=== PATIENT | male | born 1980 | race Caucasian/White ===

== ENCOUNTER 2017-02-08 18:15 | Emergency (ER) | payer BC, OTHER ==
[2017-02-08] MEDS ORDERED: Dexamethasone 10 MG/ML SDV IM ONE (19:51)
--- NOTE | 2017-02-08 19:55 | EDM.PDOC ---
ED HPI GENERAL MEDICAL PROBLEM - General Chief Complaint: ENT Problem Stated Complaint: PT HAS SORE THROAT Time Seen by Provider: 02/08/17 19:37 - History of Present Illness INITIAL COMMENTS - FREE TEXT/NARRATIVE: HISTORY AND PHYSICAL: History of present illness: The patient is a 36-year-old male who presents with a one-week history of sore throat which she feels is more on the right side but has not had significant fevers cough vomiting diarrhea or abdominal complaints. He does feel like his ears are plugged up and he did notice that he had some blood this morning originating from his nose and going down the back of his throat but is not being consistent. He does have some sinus congestion but no discrete pressure or pain. He has no ill contacts and has been eating and drinking normally and feels that it's uncomfortable to speak and swallow but he does not feel like his voice is changed significantly. He has no rashes. Review of systems: As per history of present illness and below otherwise all systems reviewed and negative. Past medical history: As per history of present illness and as reviewed below otherwise noncontributory. Surgical history: As per history of present illness and as reviewed below otherwise noncontributory. Social history: No reported history of drug or alcohol abuse. Family history: As per history of present illness and as reviewed below otherwise noncontributory. Physical exam: General: Well-developed well-nourished man speaking clearly without hoarse or muffled voice and vital signs of the note by me. HEENT: Atraumatic, normocephalic, pupils reactive, negative for conjunctival pallor or scleral icterus, mucous membranes moist, throat clear, neck supple, nontender, trachea midline. There is some shoddy anterior cervical adenopathy more on the left than on the right but no nuchal rigidity and no posterior adenopathy. There are no exudates of the uvula is midline but there is erythema of the tonsils bilaterally right subtly greater than left but there is no asymmetry. TMs are dulled bilaterally and there is some scabbing and excoriation of the nasal mucosa in the right knee area and some diffuse swelling of the turbinates. There is no discrete sinus tenderness on palpation. Lungs: Clear to auscultation, breath sounds equal bilaterally, chest nontender. Heart: S1S2, regular rate and rhythm no overt murmurs Abdomen: Soft, nondistended, nontender. NABS Skin: Normal turgor no evidence of any rashes or lesions Genitourinary: Deferred. Rectal: Deferred. Extremities: Atraumatic, negative for cords or calf pain. Neurovascular unremarkable. Neuro: Awake, alert, oriented. Cranial nerves II through XII unremarkable. Cerebellum unremarkable. Motor and sensory unremarkable throughout. Exam nonfocal. Diagnostics: Therapeutics: decadron I discussed with the patient and at bedside at length that we would proceed to treat what I am seeing but strictly cautioned them on reasons to return to the ED. Impression: Tonsillitis/pharyngitis with rhinitis Definitive disposition and diagnosis as appropriate pending reevaluation and review of above. Throat Pain Score (Numeric/FACES): 6 - Related Data Allergies Allergy/AdvReac Type Severity Reaction Status Date / Time No Known Allergies Allergy Verified 02/08/17 19:09 Home Meds: Home Meds Lisinopril 5 mg PO DAILY 02/08/17 [History] Past Medical History - Past Health History Medical/Surgical History: Denies Medical/Surgical History Cardiovascular History: Reports: Hypertension - Infectious Disease History Infectious Disease History: Reports: Chicken Pox - Past Surgical History Cardiovascular Surgical History: Reports: None Social & Family History - Family History Family Medical History: Noncontributory - Tobacco Use Smoking Status *Q: Never Smoker Second Hand Smoke Exposure: No - Caffeine Use Caffeine Use: Reports: Soda Caffeine Use Comment: 2-3 drinks/week - Recreational Drug Use Recreational Drug Use: No ED ROS GENERAL - Review of Systems Review Of Systems: ROS reveals no pertinent complaints other than HPI. ED EXAM, GENERAL - Physical Exam Exam: See Below (See dictation) Course - Vital Signs Last Recorded V/S: Last Vital Signs Temp 36.9 C 02/08/17 19:06 Pulse 87 02/08/17 19:06 Resp 18 02/08/17 19:06 BP 142/98 H 02/08/17 19:06 Pulse Ox 95 02/08/17 19:06 - Orders/Labs/Meds Meds: Medications Discontinued Medications Generic Name Dose Route Start Last Admin Trade Name Freq PRN Reason Stop Dose Admin Dexamethasone 10 mg 02/08/17 19:51 Dexamethasone IM 02/08/17 19:52 ONETIME ONE Departure - Departure Time of Disposition: 19:56 Disposition: Home, Self-Care 01 Condition: Good Clinical Impression: Tonsillitis Pharyngitis Qualifiers: Pharyngitis/tonsillitis etiology: unspecified etiology Qualified Code(s): J02.9 - Acute pharyngitis, unspecified Rhinitis Qualifiers: Rhinitis type: unspecified Chronicity: unspecified Qualified Code(s): J31.0 - Chronic rhinitis - Discharge Information Forms: ED Department Discharge Additional Instructions: The following information is given to patients seen in the emergency department who are being discharged to home. This information is to outline your options for follow-up care. We provide all patients seen in our emergency department with a follow-up referral. The need for follow-up, as well as the timing and circumstances, are variable depending upon the specifics of your emergency department visit. If you don't have a primary care physician on staff, we will provide you with a referral. We always advise you to contact your personal physician following an emergency department visit to inform them of the circumstance of the visit and for follow-up with them and/or the need for any referrals to a consulting specialist. The emergency department will also refer you to a specialist when appropriate. This referral assures that you have the opportunity for followup care with a specialist. All of these measure are taken in an effort to provide you with optimal care, which includes your followup. Under all circumstances we always encourage you to contact your private physician who remains a resource for coordinating your care. When calling for followup care, please make the office aware that this follow-up is from your recent emergency room visit. If for any reason you are refused follow-up, please contact the [facility] emergency department at and ask to speak to the emergency department charge nurse. [facility] Primary care- Internal Medicine and Family [address] [address] [place] [address] Please push hydration eat soft diet if necessary and take antibiotics until they 're finished. Please return to ER as needed and as we discussed. Please call 1 of the clinics locally and follow-up with a provider for further reevaluation and care.
[2017-02-08 20:25] VITALS: BP 146/98
== END 2017-02-08 20:23 | disposition home or self-care (01) ==
LOC: MW.ED 18:15
DX: J03.90 Acute tonsillitis, unspecified (principal); J31.0 Chronic rhinitis; I10 Essential (primary) hypertension
CPT/HCPCS: 96372; 99282; J1100; 99283